=== PATIENT | female | born 1990 ===

== ENCOUNTER 2018-01-24 08:06 | Emergency (ER) | payer OTHER, MEDICAID ==
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
[2018-01-24 10:28] VITALS: TEMP 98.2
[2018-01-24 10:31] VITALS: BP 121/78; PULSE 90; RESP 17; O2SAT 98
== END 2018-01-24 10:30 | disposition home or self-care (01) ==
LOC: ED 08:06
DX: S09.90XA Unspecified injury of head, initial encounter (principal); S53.401A Unspecified sprain of right elbow, initial encounter; V49.59XA Passenger injured in collision with other motor vehicles in traffic accident, initial encounter; Y92.410 Unspecified street and highway as the place of occurrence of the external cause